=== PATIENT | male | born 1970 | race African-American/Black ===

== ENCOUNTER 2018-05-20 02:06 | Emergency (ER) | payer OTHER ==
[~2018-05-20] VITALS: Ht 185.4 cm; Wt 83.0 kg
[2018-05-20 02:19] VITALS: BP 119/85
== END 2018-05-20 05:00 | disposition left against medical advice (07) ==
LOC: ER 02:06
DX: K62.5 Hemorrhage of anus and rectum (principal); Z53.21 Procedure and treatment not carried out due to patient leaving prior to being seen by health care provider